=== PATIENT | female | born 1960 | race Caucasian/White ===

== ENCOUNTER 2019-11-27 09:31 | Outpatient (CLI) | payer OTHER, SELFPAY ==
--- NOTE | ~2019-11-27 | MM_ITS ---
EXAMINATION: MM screening deuce BI w celia HISTORY: Screening mammogram TECHNIQUE: Craniocaudal and mediolateral oblique 3-D tomosynthesis images were obtained and synthetic 2-D images were generated. CAD analysis was submitted and interpreted. COMPARISON: 10/24/2018, 12/09/2014, 10/31/2013 bilateral digital screening mammogram examinations BREAST PARENCHYMAL COMPOSITION: There are scattered areas of fibroglandular density. FINDINGS: Stable mild fibroglandular asymmetry. Scattered benign calcifications are noted bilaterally . There is no evidence of suspicious mass, calcification, or architectural distortion to suggest chelsey gnancy in either breast. There has been no suspicious interval change. IMPRESSION: 1. No mammographic evidence of malignancy. 2. Recommend routine screening mammography in one year. BI-RADS Category 2: Benign finding(s). Reviewed, dictated and finalized at location A.
== END 2019-11-27 09:32 | disposition home or self-care (01) ==
LOC: ANHIMG 09:36
PROVIDERS: PCP Physician Assistant; Visit Provider Physician Assistant
DX: Z12.31 Encounter for screening mammogram for malignant neoplasm of breast (principal)
CPT/HCPCS: 77063; 77067

== ENCOUNTER 2020-01-09 07:23 | Emergency (ER) | payer SELFPAY ==
--- NOTE | ~2020-01-09 | XR_ITS ---
XR foot LT min 3V 01/09/2020 07:50 Indication: Twisting injury left foot Procedure: 4 views left foot Comparison: No prior studies for comparison. Findings: No fracture, subluxation or dislocation. Small degenerative calcaneal enthesophyte. There a re degenerative changes of the first tarsal metatarsal joint. No focal soft tissue abnormality. No ra diopaque foreign bodies. Impression: 1: No acute fracture. Reviewed, dictated and finalized at location B. Impression: 1: No acute fracture.
--- NOTE | 2020-01-09 07:26 | ED_ITS ---
HPI - Extremity Problem General Chief complaint: Extremity Injury, Lower Stated complaint: right leg pain Time Seen by Provider: 01/09/20 07:25 History of Present Illness HPI Narrative: She slipped while walking down the stairs last night and twisted her left foot. She heard a loud pop. She now has pain and swelling to the dorsum of the left foot. The pain radiates to the left hip. No wound. Related Data Allergies Allergy/AdvReac Type Severity Reaction Status Date / Time No Known Allergies Allergy Unverified 11/08/12 16:32 Review of Systems Review of Systems: All systems reviewed & are unremarkable except as noted in HPI and below ENT: Denies dizziness Respiratory: Respiratory: Denies dyspnea Musculoskeletal: Musculoskeletal: Denies back pain Neurologic: Denies syncope, Denies numbness and Denies weakness Hematologic/Lymphatic: Hematologic/Lymphatic: Denies easy bleeding and Denies easy bruising PMFSH Family History Family History Sibling Hypertension Family history of elevated blood lipids Family history of diabetes mellitus in first degree relative Family history of heart disease in male family member before age 55 Mother Family history of anemia Father Family history of diabetes mellitus in first degree relative Social History Social History Alcohol intake: never Gender identity (if verbalized by the patient): Female Exam Const: General: healthy appearing, no acute distress and alert Orienta tion/consciousness: patient oriented x3 Cardio: Other: 2 + DP and PT on the left Skin: General skin exam: normal color Wounds: no wounds Neuro: General: patient oriented x3 and moves all extremities Speech: normal speech Extrem: Other: firm swelling to the dorsum of the mid foot on the left Course Vital Signs Vital signs: Vital Signs Temperature 36.9 C 01/09/20 07:37 Pulse Rate 95 01/09/20 07:37 Respiratory Rate 17 01/09/20 07:37 Blood Pressure 127/88 01/09/20 07:37 Pulse Oximetry 97 01/09/20 07:37 Temperature 36.9 C 01/09/20 07:37 Pulse Rate 77 01/09/20 09:20 Respiratory Rate 15 01/09/20 09:20 Blood Pressure 124/80 01/09/20 09:20 Pulse Oximetry 95 01/09/20 09:20 MDM - Extremity (Nontraumatic) Imaging Data Radiologist's impression: ITS Impressions Foot X-Ray 01/09/20 08:18 Impression: 1: No acute fracture. Discharge Plan Discharge Clinical Impression: Foot sprain Qualifiers: Encounter type: initial encounter Laterality: left Qualified Code(s): S93.602A - Unspecified sprain of left foot, initial encounter Patient Disposition: Home, Self-Care Condition: Stable Instructions: Foot Sprain (ED) Follow-up/Referrals: Chava,MORAIMA Maldonado [Primary Care Provider] - Stand Alone Forms: Work/School Release IP Discharge Date/Time: 01/09/20 09:21
[2020-01-09 07:37] VITALS: BP 127/88; PULSE 95; RESP 17; TEMP 36.9; O2SAT 97
[2020-01-09 09:20] VITALS: BP 124/80; PULSE 77; RESP 15; O2SAT 95
== END 2020-01-09 09:21 | disposition home or self-care (01) ==
PROVIDERS: Emergency Provider Emergency Medicine; PCP Physician Assistant
DX: S93.602A Unspecified sprain of left foot, initial encounter (principal); X50.9XXA Other and unspecified overexertion or strenuous movements or postures, initial encounter
CPT/HCPCS: 73630; 99283

== ENCOUNTER → 2020-01-14 11:33 | Outpatient (CLI) | payer OTHER, SELFPAY ==
--- NOTE | ~2020-01-14 | XR_ITS ---
EXAMINATION: XR hip BI 2V w AP pelvis EXAM DATE: 01/14/2020 12:00 INDICATION: Fell last week, bruises, hip pain. TECHNIQUE: Each hip imaged independently (separate right and also left hip) 'frog leg' and frontal p rojections for interpretation. Frontal projection pelvis. There is no prior study for comparison. FINDINGS: No radiographic evidence of hip avascular necrosis. There are no acute fractures or disloc ations identified. There is no subcutaneous gas. The soft tissue is unremarkable. There are no ra diopaque foreign bodies. 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 IMPRESSION: No acute osseous findings. Reviewed, dictated and finalized at location A. IMPRESSION: No acute osseous findings.
== END ==
PROVIDERS: PCP Physician Assistant; Visit Provider Physician Assistant
DX: M25.551 Pain in right hip (principal); M25.552 Pain in left hip; W19.XXXA Unspecified fall, initial encounter
CPT/HCPCS: 73521

== ENCOUNTER → 2021-02-26 13:22 | Outpatient (CLI) | payer OTHER, SELFPAY ==
--- NOTE | ~2021-02-26 | MM_ITS ---
EXAMINATION: MM screening deuce BI w celia HISTORY: Screening TECHNIQUE: Craniocaudal and mediolateral oblique 3-D tomosynthesis images were obtained and synthetic 2-D images were generated. CAD analysis was submitted and interpreted. COMPARISON: Comparison to multiple prior studies sequentially, with oldest reviewed study dated 07/21. BREAST PARENCHYMAL COMPOSITION: There are scattered areas of fibroglandular density. FINDINGS: There is no evidence of suspicious mass, calcification, or architectural distortion to sugg est malignancy in either breast. There has been no suspicious interval change. IMPRESSION: 1. No mammographic evidence of malignancy. 2. Recommend routine screening mammography in one year. BI-RADS Category 1: Negative Reviewed, dictated and finalized at location A.
--- NOTE | ~2021-02-26 | DEXA_ITS ---
Bone Density Report Name: Cristal Reed Age: 60 Sex: Female Ethnicity: White Date of : 1960 Indication: postmenopausal; screening for osteoporosis; Referring Provider: Raymundo, Ann Marie Cool Study: Bone densitometry was performed. Exam Date: February 26, 2021 Accession number: [id number] Bone Density: Region BMD T-score Z-score Classification AP Spine (L1-L4) 0.928 -1.1 0.3 Osteopenia Femoral Neck (Left) 0.715 -1.2 0.1 Osteopenia Total Hip (Left) 0.872 -0.6 0.4 Normal Femoral Neck (Right) 0.687 -1.5 -0.2 Osteopenia Total Hip (Right) 0.898 -0.4 0.6 Normal Total Hip Mean 0.885 -0.5 0.5 Normal World Health Organization criteria for BMD impression classify patients as: Normal (T-score at or above -1.0), Osteopenia (T-score between -1.0 and -2.5), or Osteoporosis (T-score at or below -2.5). 10-year Fracture Risk(1): Major Osteoporotic Fracture 7.8% Hip Fracture 0.6% Reported Risk Factors: [place] (), Neck BMD=0.687, BMI=27.5 (1) FRAX(R) Version 3.08. Fracture probability calculated for an untreated patient. Fracture probability may be lower if the patient has received treatment. Clinical Information Provided by Patient: Has used the following medications: Vitamin D, Calcium, MTV Patient maximum height was 64 Menopause Age: 51 No regular weight bearing exercise Drinks caffeinated beverages Onset of menses at age 13 Number of children 3 Impression: The patient has low bone mass, based on the Right Femoral Neck T-score. The patient has an estimated ten-year risk of hip fracture of 0.6% and an estimated ten-year risk of major fracture of 7.8%, based on the WHO FRAX algorithm. Discussion: BONE DENSITY IS LOW AT ONE OR MORE SKELETAL SITES. This patient's lowest T-score is low at one or more skeletal sites. It meets the World Health Organization's (WHO) criteria for ?low bone mass? (T-score between -1.0 and -2.5). The patient's 10-year risk of fracture as calculated by FRAX is less than the threshold where pharmacological therapy is recommended by the National Osteoporosis Foundation (NOF). However, all treatment decisions require clinical judgment and consideration of individual patient factors, including patient preferences, comorbidities, previous drug use, risk factors not captured in the FRAX model (e.g., frailty, falls, vitamin D deficiency, increased bone turnover, interval significant decline in bone density) and possible under or overestimation of fracture risk by FRAX. The patient should follow a healthful lifestyle (good nutrition with adequate calcium and vitamin D, and appropriate weight-bearing exercise). Follow-Up: Consider repeating this study in 2 to 3 years to reassess this patient's status, or sooner if there is some new clinical indication. Reported by: IRAIS
== END ==
PROVIDERS: PCP Physician Assistant; Visit Provider Nurse Practitioner Obstetrics & Gynecology
DX: Z12.31 Encounter for screening mammogram for malignant neoplasm of breast (principal); Z78.0 Asymptomatic menopausal state; M85.88 Other specified disorders of bone density and structure, other site; M85.851 Other specified disorders of bone density and structure, right thigh; M85.852 Other specified disorders of bone density and structure, left thigh
CPT/HCPCS: 77063; 77067; 77080

== ENCOUNTER → 2021-09-06 09:58 | Outpatient (CLI) | payer SELFPAY ==
--- NOTE | ~2021-09-06 | XR_ITS ---
XR cervical spine 4-5V DATE: 09/06/2021 10:23 INDICATION: Neck pain TECHNIQUE: AP, open-mouth, odontoid, lateral and swimmer views COMPARISON: None FINDINGS: There is some straightening of the cervical spine. C1 and C2 are normally aligned and the odontoid process is intact. No fracture or dislocation or lock ed facet or prevertebral soft tissue swelling. There is moderate degenerative disc disease at C3-4 and moderately severe degenerative disease at C6- 7. There is uncovertebral joint spurring at C5-6 and C6-7, most prominent on the left at C6-7, encroachi ng minimally upon the anterior aspect of the left C7 neural foramen. IMPRESSION: Straightening Cervical spondylosis No fracture or dislocation or locked facet Reviewed, dictated and finalized at location A.
== END ==
PROVIDERS: PCP Physician Assistant; Visit Provider Physician Assistant
DX: M47.892 Other spondylosis, cervical region (principal)
CPT/HCPCS: 72050

== ENCOUNTER → 2022-03-15 09:37 | Outpatient (CLI) | payer OTHER, SELFPAY ==
--- NOTE | ~2022-03-15 | MM_ITS ---
EXAMINATION: MM screening [facility] BI w celia HISTORY: Screening mammogram TECHNIQUE: Craniocaudal and mediolateral oblique 3-D tomosynthesis images were obtained and synthetic 2-D images were generated. CAD analysis was submitted and interpreted. COMPARISON: 02/26/2021, 11/27/2019, 10/24/2018 BREAST PARENCHYMAL COMPOSITION: There are scattered areas of fibroglandular density. FINDINGS: RIGHT BREAST: There is a possible mass in the middle third of the outer breast 10 cm from the nipple. LEFT BREAST: There is a possible mass in the middle third of the central breast approximately 6.5 cm from the nipple. IMPRESSION: 1. Possible breast masses. 2. Additional mammographic views and possible breast ultrasound are recommended. BI-RADS Category 0: Incomplete: Needs additional imaging evaluation. Reviewed, dictated and finalized at location A. IMPRESSION: 1. Possible breast masses. 2. Additional mammographic views and possible breast ultrasound are recommended . BI-RADS Category 0: Incomplete: Needs additional imaging evaluation.
== END ==
PROVIDERS: PCP Physician Assistant; Visit Provider Nurse Practitioner Obstetrics & Gynecology
DX: Z12.31 Encounter for screening mammogram for malignant neoplasm of breast (principal); R92.8 Other abnormal and inconclusive findings on diagnostic imaging of breast
CPT/HCPCS: 77063; 77067

== ENCOUNTER 2022-04-10 10:56 | Emergency (ER) | payer OTHER, SELFPAY ==
[2022-04-10] VITALS (8 sets, daily range): BP systolic 117–132; BP diastolic 69–89; PULSE 61–79; RESP 14–18; TEMP 37; O2SAT 97–100
--- NOTE | ~2022-04-10 | XR_ITS ---
EXAMINATION: XR chest 2V DATE: 04/10/2022 11:17 INDICATION: Chest pain TECHNIQUE: PA and lateral views of the chest were obtained. COMPARISON: Chest radiograph dated 07/02/2018 FINDINGS: The lungs are now clear with no focal airspace opacities, pulmonary edema, pleural effusion or pneumo thorax. The cardiomediastinal silhouette is normal. Visualized bones and soft tissues are unremarkabl e. IMPRESSION: 1. No acute cardiopulmonary disease. Reviewed, dictated and finalized at location A.
--- NOTE | ~2022-04-10 | NM_ITS ---
EXAMINATION: NM pulmonary perfusion DATE: 04/10/2022 16:01 INDICATION: Elevated d-dimer, chest pain, evaluate for PE TECHNIQUE: 5.2 mCi Tc-99m MAA was administered intravenously for perfusion images. Scintigraphic imag es of the chest were obtained. COMPARISON: X-ray chest 04/10/2022. FINDINGS: Perfusion images show perfusion. IMPRESSION: 1. Low probability for pulmonary embolism. Reviewed, dictated and finalized at location K.
--- NOTE | 2022-04-10 10:57 | ECG_ITS ---
Measurements Intervals [place] Rate: 66 P: 75 [place]: 171 QRS: 34 QRSD: 79 T: 57 QT: 388 QTc: 407 Interpretive Statements SINUS RHYTHM WITH MARKED SINUS ARRHYTHMIA BORDERLINE ECG NO PREVIOUS ECG AVAILABLE FOR COMPARISON Electronically Signed On 04-10-2022 15:48:29 CDT by Marcus Rodriguez M.D.
--- NOTE | 2022-04-10 11:43 | ED.GENADULT ---
HPI - General Adult General Chief complaint: Chest Pain Stated complaint: chest pain Time Seen by Provider: 04/10/22 11:09 History of Present Illness HPI narrative: 61-year-old female presenting the emergency department for evaluation of right-sided chest pain that started this morning. Patient states last week she did have a fall and struck her face and chest the medic checked out. Patient denies any loss of consciousness with this. Patient states she did have some pain in her chest but that the chest pain worsened this morning. Patient does report associated shortness of breath with this. Patient denies any prior history of coronary artery disease. Patient denies any history of PE or DVT. Patient states her cholesterol is high but not high enough to take medications. Patient has no history of hypertension, diabetes. Related Data Home Medications Medication Instructions Recorded Confirmed meloxicam 15 mg tablet mg 04/10/22 montelukast 10 mg tablet mg 04/10/22 tizanidine 4 mg tablet mg 04/10/22 04/10/22 Allergies Allergy/AdvReac Type Severity Reaction Status Date / Time No Known Allergies Allergy Unverified 11/08/12 16:32 Review of Systems Review of Systems: CONSTITUTIONAL: Denies fever, chills, or sweats. EYES: Denies visual changes, redness, or discharge. ENT: Denies rhinorrhea, congestion, sore throat, or otalgia. CARDIOVASCULAR: See HPI RESPIRATORY: See HPI GASTROINTESTINAL: Denies abdominal pain, nausea, vomiting, or diarrhea. GENITOURINARY: Denies dysuria or hematuria. SKIN: Denies rash or itching. MUSCULOSKELETAL: Denies back pain, joint pain, or myalgia. NEUROLOGIC: Denies headache, numbness, or weakness. PSYCHIATRIC: Denies anxiety or depression. [facility] Family History Family History Sibling Hypertension Family history of elevated blood lipids Family history of diabetes mellitus in first degree relative Family history of heart disease in male family member before age 55 Mother Family history of anemia Father Family history of diabetes mellitus in first degree relative Social History Social History Alcohol intake: never Gender identity (if verbalized by the patient): Female Exam Narrative: APPEARANCE: Well appearing, no pain, no distress, well-nourished. HEAD: normocephalic, atraumatic. EYES: PERRLA/EOMI, conjunctivae clear. NOSE: Normal no drainage NECK: Supple. No adenopathy, no masses. RESPIRATORY: Airway patent, respirations nonlabored. Clear to auscultation bilaterally, no rales, rhonchi, wheezing. CARDIOVASCULAR: Regular rate and rhythm without murmurs rubs or gallops. Reproducible right-sided chest wall tenderness to palpation ABDOMINAL: Soft, nontender, nondistended, normal bowel sounds MUSCULOSKELETAL: Moves all extremities. Strength/ROM intact, No edema, No calf tenderness. NEURO: Alert. Cranial nerves II through XII intact. Grossly intact SKIN: Warm, dry. Normal Color Course Course Emergency Course: Patient declined any medications for pain control. Patient family were updated on the plan for the work-up. All question concerns were addressed Patient was afebrile with no leukocytosis. Patient did have an elevated D-dimer. CT scan was unable to be done due to infiltration of the IV contrast. Patient states her right arm does feel full but patient denies any pain. Patient is neurovascular intact. Patient has strong cap refill and strong distal pulses. No tenderness to palpation. Patient had negative serial troponins. Suspect costochondritis versus chest wall contusion as the underlying etiology of her symptoms. Low concern for ACS or pulmonary believes him. Patient and family were updated on results of the results and on the importance of having close follow-up with her primary care physician. Vital Signs Vital signs: Vital Signs Temperature 98.6 F
[2022-04-10 11:46] LABS: Basophils Percent Auto 0.4 % (0.2-1.2); Eosinophils Absolute Auto 0.1 K/mm3 (0-0.3); Eosinophils Percent Auto 1.9 % (0-4.4); Hematocrit 41.4 % (37.0-47.0); Hemoglobin 13.8 g/dL (12.0-15.0); Immature Granulocyte Absolute 0.01 K/mm3 (0.00-0.031); Immature Granulocyte Percent A 0.2 % (0-0.5); Lymphocytes Absolute Auto 2.37 K/mm3 (0.9-3.2); Mean Corpuscular HGB Conc 33.3 g/dl (32-36); Mean Corpuscular Hemoglobin 31.4 pg (26-34); Mean Corpuscular Volume 94.3 fl (80-100); Monocytes Absolute Auto 0.5 K/mm3 (0.1-0.6); Monocytes Percent Auto 8.7 % (2.6-8.5); Neutrophils Absolute Auto 2.2 K/mm3 (1.3-6.7); Neutrophils Percent Auto 42.8 % (45.5-73.1); Platelet Count Result 274 k/mm3 (150-375); Red Blood Count 4.39 M/mm3 (4.2-5.4); Red Cell Distribution Width 12.3 % (11.5-14.5); White Blood Count 5.2 K/mm3 (4.5-10.0)
[2022-04-10 11:52] LABS: Alanine Aminotransferase 22 U/L (6-35); Albumin Level 4.8 g/dL (3.5-5.1); Alkaline Phosphatase 47 U/L (38-126); Anion Gap 10 mmol/L (8-16); Aspartate Amino Transferase 29 U/L (14-36); Bilirubin,Total 1.2 mg/dL (0.2-1.3); Blood Urea Nitrogen 14 mg/dL (7-17); Carbon Dioxide 26 mmol/L (22-30); Chloride 101 mmol/L (98-107); Estimated CRCL calculation 74 ml/min; Estimated Glomerular Filt Rate > 60; Glucose 96 mg/dL (65-110); Lipase 115 U/L (23-300); Potassium 4.3 mmol/L (3.4-5.0); Sodium 137 mmol/L (137-145)
[2022-04-10 12:02] LABS: Troponin I < 0.012 ng/mL (0.000-0.034)
[2022-04-10 12:05] LABS: INR 0.9; Partial Thromboplastin Time 28.7 SECONDS (22.3-36.8); Prothrombin Time 12.2 Seconds (11.1-14.7)
[2022-04-10] MEDS: ASPIRIN 81 MG CHEWABLE TABLET 324 MG PO (12:28)
[2022-04-10 12:30] LABS: D Dimer 0.54 ug/mL (<0.48)
[2022-04-10 14:33] LABS: Troponin I < 0.012 ng/mL (0.000-0.034)
== END 2022-04-10 17:34 | disposition home or self-care (01) ==
PROVIDERS: Emergency Provider Emergency Medicine; PCP Physician Assistant
DX: R07.89 Other chest pain (principal)
CPT/HCPCS: 36415; 71046; 78580; 80053; 83690; 84484; 85025; 85380; 85610; 85730; 93005; 99284; A9270; A9540

== ENCOUNTER → 2022-04-18 08:22 | Outpatient (CLI) | payer OTHER, SELFPAY ==
--- NOTE | ~2022-04-18 | MMUS_ITS ---
EXAMINATION: MM diagnostic deuce BI w celia, US breast BI limited HISTORY: Possible bilateral breast masses on screening mammogram TECHNIQUE: Additional 3-D tomosynthesis images of the breasts were performed and synthetic 2-D images were generated. CAD analysis was submitted and interpreted. High resolution limited bilateral breast ultrasound was performed. COMPARISON: 03/15/2022, 02/26/2021, 11/27/2019, 10/24/2018 BREAST PARENCHYMAL COMPOSITION: There are scattered areas of fibroglandular density. FINDINGS: MAMMOGRAPHIC FINDINGS: Right breast: There is a 9.7 x 6.5 mm oval, obscured, equal density mass in the middle third of the l ower-outer breast at 8:00 location 9 cm from the nipple. Left breast: There is an approximately 8 mm obscured low density mass in the middle third of the slig htly upper breast at the 12:00 location 5 cm from the nipple. ULTRASOUND: Right breast: There is a 10 mm x 4 mm oval, circumscribed, parallel mass at the 9:00 location 9 cm fr om the nipple which has an appearance suggestive of clustered microcysts. No internal vascularity or suspicious posterior features are identified. Left breast: There appear to be three adjacent cysts in the left breast at the 12:00 location 2 cm fr om the nipple which measure up to 3 mm. IMPRESSION: 1. Probably benign bilateral breast findings. 2. Recommend 6 month follow-up bilateral diagnostic mammogram and ultrasound are recommended. BI-RADS category 3, probably benign findings. Reviewed, dictated and finalized at location A. IMPRESSION: 1. Probably benign bilateral breast findings. 2. Recommend 6 month follow-up bilateral diagnostic mammogram and ultrasound ar e recommended. BI-RADS category 3, probably benign findings.
== END ==
PROVIDERS: PCP Physician Assistant; Visit Provider Nurse Practitioner Obstetrics & Gynecology
DX: R92.8 Other abnormal and inconclusive findings on diagnostic imaging of breast (principal)
CPT/HCPCS: 76642; 77062; 77066; G0279

== ENCOUNTER → 2022-10-18 08:29 | Outpatient (CLI) | payer OTHER, SELFPAY ==
--- NOTE | ~2022-10-18 | MMUS_ITS ---
EXAMINATION: MM diagnostic deuce BI w celia, US breast BI limited HISTORY: Six-month follow-up of probably benign bilateral breast imaging findings TECHNIQUE: ML, MLO and CC 3-D tomosynthesis images of both breasts were performed and synthetic 2-D i mages were generated. CAD analysis was submitted and interpreted. High resolution bilateral Limited b reast ultrasound was performed. COMPARISON: 04/14/2022 bilateral diagnostic mammography and bilateral Limited breast ultrasound BREAST PARENCHYMAL COMPOSITION: There are scattered areas of fibroglandular density. FINDINGS: MAMMOGRAPHIC FINDINGS: Scattered bilateral benign calcifications. There is stable fibroglandular asymmetry. No interval susp icious suspicious mass or significant new or developing density of either breast is detected. ULTRASOUND: Right breast: 9:00 9 cm from nipple: Multi septated cyst measuring up to 4 x 8 x 10 mm, not significantly changed s damien 04/14/2022. Left breast: 12:00 2 cm from nipple: 3.8 and 1.5 mm sonolucencies, likely small cysts no suspicious shadowing. IMPRESSION: 1. Benign findings 2. Routine annual mammographic screening is recommended BI-RADS Category 2: Benign finding(s). Reviewed, dictated and finalized at location A. IMPRESSION: 1. Benign findings 2. Routine annual mammographic screening is recommended BI-RADS Category 2: Benign finding(s).
== END ==
PROVIDERS: PCP Physician Assistant; Visit Provider Nurse Practitioner Obstetrics & Gynecology
DX: N60.01 Solitary cyst of right breast (principal); R92.8 Other abnormal and inconclusive findings on diagnostic imaging of breast
CPT/HCPCS: 76642; 77062; 77066; G0279

== ENCOUNTER 2023-07-11 07:00 | Outpatient (NON) | payer OTHER, SELFPAY | END 2023-07-11 07:01 | disposition home or self-care (01) | LOC: ANHLAB 07-12 11:19 | PROVIDERS: PCP Physician Assistant; Visit Provider Nurse Practitioner | DX: D23.5 Other benign neoplasm of skin of trunk (principal) | CPT/HCPCS: 88305; 88342 ==

== ENCOUNTER 2024-01-03 10:33 | Outpatient (CLI) | payer OTHER, SELFPAY ==
--- NOTE | ~2024-01-03 | MM_ITS ---
EXAMINATION: MM screening deuce BI w celia HISTORY: Screening TECHNIQUE: Craniocaudal and mediolateral oblique 3-D tomosynthesis images were obtained and synthetic 2-D images were generated. CAD analysis was submitted and interpreted. COMPARISON: Comparison to multiple prior studies sequentially, with oldest reviewed study dated 06/2018. BREAST PARENCHYMAL COMPOSITION: Not dense: There are scattered areas of fibroglandular density. FINDINGS: There is no evidence of suspicious mass, calcification, or architectural distortion to sugg est malignancy in either breast. There has been no suspicious interval change. IMPRESSION: 1. No mammographic evidence of malignancy. 2. Recommend routine screening mammography in one year. BI-RADS Category 1: Negative Reviewed, dictated and finalized at location B.
== END 2024-01-03 10:34 ==
LOC: MICIMG 10:34
PROVIDERS: PCP Physician Assistant; Visit Provider Nurse Practitioner
DX: Z12.31 Encounter for screening mammogram for malignant neoplasm of breast (principal)
CPT/HCPCS: 77063; 77067

== ENCOUNTER 2025-06-16 12:39 | Outpatient (CLI) | payer OTHER, SELFPAY ==
--- NOTE | ~2025-06-16 | MM_ITS ---
EXAMINATION: MM screening deuce BI w celia HISTORY: Screening. TECHNIQUE: Craniocaudal and mediolateral oblique 3-D tomosynthesis images were obtained and synthetic 2-D images were generated. CAD analysis was submitted and interpreted. COMPARISON: 2023, 2022, and 2021 BREAST PARENCHYMAL COMPOSITION: Dense: The breasts are heterogeneously dense, which may obscure small masses. FINDINGS: There is an asymmetry at the posterior lateral aspect of the left craniocaudal view with a few associated calcifications. No unexplained architectural distortion is seen. There are no skin or nipple abnormalities identified. There is no adenopathy seen on the images submitted. IMPRESSION: Questionable appearance on the left for which additional imaging is recommended. BI-RADS 0 - Incomplete - needs additional imaging evaluation Reviewed, dictated and finalized at location A. 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 BI-RADS 0 - Incomplete - needs additional imaging evaluation
== END 2025-06-16 12:40 | disposition home or self-care (01) ==
LOC: MICIMG 12:40
PROVIDERS: PCP Physician Assistant; Visit Provider Nurse Practitioner Obstetrics & Gynecology
DX: Z12.31 Encounter for screening mammogram for malignant neoplasm of breast (principal); R92.8 Other abnormal and inconclusive findings on diagnostic imaging of breast
CPT/HCPCS: 77063; 77067